=== PATIENT | male | born 1980 | race Asian ===

== ENCOUNTER 2020-12-14 19:00 | Emergency (ER) | payer OTHER ==
[~2020-12-14] VITALS: Ht 180.3 cm; Wt 117.5 kg
[2020-12-14 19:13] VITALS: BP 141/82
[2020-12-14] MEDS ORDERED: LISINOPRIL10 MG PO (19:16)
[2020-12-14] MEDS ORDERED: TOPAMAX25 M1 PO (19:16)
[2020-12-14] MEDS ORDERED: MOBIC7.5 MG PO (19:50)
== END 2020-12-14 20:15 | disposition home or self-care (01) ==
LOC: ER 19:00
DX: M79.651 Pain in right thigh (principal); I10 Essential (primary) hypertension; Z79.899 Other long term (current) drug therapy